=== PATIENT | female | born 1990 | race African-American/Black ===

== ENCOUNTER 2017-08-23 19:03 | Emergency (ER) | payer MEDICAID ==
[~2017-08-23] VITALS: Ht 165.1 cm; Wt 95.0 kg
[2017-08-23 19:45] VITALS: BP 103/73
== END 2017-08-23 21:30 | disposition home or self-care (01) ==
LOC: ER 19:03
DX: S82.001D Unspecified fracture of right patella, subsequent encounter for closed fracture with routine healing (principal); F19.10 Other psychoactive substance abuse, uncomplicated; W10.8XXD Fall (on) (from) other stairs and steps, subsequent encounter; Y93.89 Activity, other specified; Y92.89 Other specified places as the place of occurrence of the external cause; Y99.8 Other external cause status; Z88.6 Allergy status to analgesic agent
CPT/HCPCS: 99282